=== PATIENT | male | born 1950 | race Caucasian/White ===

== ENCOUNTER 2017-01-28 08:33 | Inpatient (IN) | payer BC ==
[2017-01-21 10:15] LABS: BASOPHILS 0.2 %; BASOPHILS ABSOLUTE 0.02 10/3/uL (0.0-0.16); EOSINOPHILS 0.9 %; EOSINOPHILS ABSOLUTE 0.08 10/3/uL (0.0-0.53); HEMATOCRIT 42.8 % (40.0-51.0); HEMOGLOBIN 14.2 g/dL (13.6-17.8); IMMATURE GRANULOCYTES 0.8 %; IMMATURE GRANULOCYTES ABSOLUTE 0.07 10/3/uL (0.0-0.11); LYMPHOCYTES 31.9 %; LYMPHOCYTES ABSOLUTE 2.78 10/3/uL (0.67-4.30); MEAN CORPUS HGB CONC 33.2 g/dL (32.0-36.0); MEAN CORPUSCULAR HEMOGLOB 31.1 pg (26.0-34.0); MEAN CORPUSCULAR VOLUME 93.9 fL (80-100); MEAN PLATELET VOLUME 10.4 fL (9.2-13.0); MONOCYTES 7.9 %; MONOCYTES ABSOLUTE 0.69 10/3/uL (0.21-1.20); NEUTROPHILS 58.3 %; NEUTROPHILS ABSOLUTE 5.08 10/3/uL (2.02-8.40); PLATELET COUNT 277 10/3/uL (150-400); RBC DISTRIBUTION WIDTH 13.3 % (12.0-16.0); RED CELL COUNT 4.56 10/6/uL (4.7-6.1); WHITE BLOOD CELLS 8.7 10/3/uL (4.5-10.5)
[2017-01-21 10:17] LABS: MANUAL DIFF NO %
[2017-01-21 10:22] LABS: INTERNATIONAL NORMAL RATI 0.9 UNITS (-); PARTIAL THROMBO TIME 27.4 SEC (22.5-37.2); PROTIME (NOT ORD) 12.3 SEC (12.0-14.5)
[2017-01-21 10:28] LABS: CALCIUM, SERUM 9.2 MG/DL (8.5-10.4); CHLORIDE, SERUM 107 MMOL/L (96-112); CO2 (CARBON DIOXIDE) 27 MMOL/L (24-34); CREATININE 0.96 MG/DL (0.70-1.30); GFR AFRICAN AMERICAN 93 ML/MIN (>=60); GFR NON AFRICAN AMERICAN 80 ML/MIN (>=60); POTASSIUM, SERUM 4.7 MMOL/L (3.5-5.3); SODIUM, SERUM 142 MMOL/L (135-148)
[2017-01-21 10:30] LABS: BUN (BLOOD UREA NITROGEN) 15 MG/DL (6-23); GLUCOSE, SERUM 252 MG/DL (60-99)
[2017-01-21 11:48] LABS: ASCORBIC ACID (UR NOT ORDER) NEG (NEG); BILIRUBIN, URINE NEGATIVE (NEG); KETONE, URINE TRACE MG/DL (NEG); LEUKOCYTE ESTERASE(NOT OR NEG (NEG); WBC (NOT ORDERED) (RFLEX) 3 (0-5)
--- NOTE | ~2017-01-28 | DS ---
Discharge Summary [facility] [address] [place]. [address] NAME: MENDOZA LARSON : 46 STATUS : DIS IN PAT#: [id number] AGE: 67 ADM/REG DATE : 01/28/17 MR#: [id number] REPORT SERV DATE: 02/17/17 DICTATED BY: DILAN NOLASCO DATE: 02/17/17 REPORT STATUS : Draft TRANSCRIBED BY: MODDonal DATE: 02/17/17 Data Collection from hospitalization DISCHARGE DIAGNOSES: 1. 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 2. Diabetes mellitus. 3. Hypertension. 4. Neuropathy. 5. Obesity. 6. Glaucoma. CONSULTATIONS: Nilesh Boswell M.D. PROCEDURES: 1. Laparoscopic robotic-assisted right nephroureterectomy-converted, open, 01/28/2017. 2. CT scan of the abdomen and pelvis without contrast, 02/05/2017. 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 DISCHARGE MEDICATIONS: Vasotec 2.5 mg every morning, Xodol one tablet every four hours as needed, NovoLog FlexPen 9 units subcutaneously with meals, Levemir 50 units subcutaneously in a.m., Levemir 40 units subcutaneously at bedtime, Xalatan one drop at bedtime, Glucophage 850 mg twice a day, fish oil 1000 mg daily, Pravachol 40 mg at bedtime, Betimol 1 drop every morning. CONDITION ON DISCHARGE: Stable. DISPOSITION: The patient was discharged home on a regular diet with activities as instructed. He would follow up with me on Wednesday following discharge. He would follow up with Dr. Nilesh Boswell in two to three weeks following discharge. HOSPITAL COURSE: This is a 67-year-old man who was recently diagnosed with transitional cell carcinoma of the right renal pelvis. He had an episode of gross hematuria that led to imaging. Subsequent cystoscopy, retrograde pyelogram, ureteroscopy, and biopsy revealed a high-grade transitional cell carcinoma of the right ureter and renal pelvis. There were no signs of any metastatic disease. Different treatment options regarding management of this transitional cell carcinoma have been discussed with the patient. Treatment options were discussed and it was elected to proceed with surgical intervention. He was admitted to the hospital at this time for further evaluation and treatment. Upon admission, he was taken to the operating room where he underwent the above-mentioned procedure. He tolerated this well, and there were no complications. On postop day #1, his abdomen was soft and nontender. He had normal distal pulses. Nolasco catheter and DENISE drain were in place. We encouraged him to ambulate in the room. On 01/30, creatinine level was 1.72. His lungs were clear. He was passing flatus. He was seen by Dr. Nilesh Boswell regarding rise in serum creatinine, status post right nephrectomy for transitional renal cell carcinoma. His hemoglobin A1c by report is approximately 7.1-7.2. He had not Discharge Summary [address] [address] NAME: MENDOZA LARSON : 46 STATUS : DIS IN PAT#: [id number] AGE: 67 ADM/REG DATE : 01/28/17 MR#: [id number] REPORT SERV DATE: 02/17/17 DICTATED BY: DILAN NOLASCO DATE: 02/17/17 REPORT STATUS : Draft TRANSCRIBED BY: CYRIL DATE: 02/17/17 previously seen a nephrology provider. He is chronically maintained on JOHN inhibitor at home for his antihypertensive control but does not chronically use nonsteroidal medications. White blood cell count was 11.4. Creatinine level was 1.44. He remained currently on enalapril. He did have some low blood pressure during surgery as well as removal of his right kidney. It was felt that his creatinine had started to trend appropriately back toward its previous baseline. He was advised that going forward he would need to follow with a renal specialist. Urine studies were going to be checked as well as a repeat urinalysis. Enalapril was going to be stopped. He had been advised to avoid nonsteroidal medications for life, and he was also advised to avoid contrast medium if possible and weigh medical testing with risks versus rewards. On 01/31/2017, supportive care continued. Renal function had improved. He was felt to likely have ATN. JOHN inhibitor was on hold. Metformin was on hold. He was not passing flatus. Creatinine level was 1.25. The next day, he was afebrile. He did complain of belching. An NG tube was going to be placed. It was felt that he had a postop ileus. IV fluids were continued. On 02/02, he was alert and cooperative. He had no focal deficits. He had some slight abdominal distention. Proton-pump inhibitor was going to be added. He did have a small bowel movement. Postop ileus was felt to be improving. Discharge planning was performed. IV fluids were stopped. We were going to advance his diet. On 02/06/2017, he continued to pass flatus. His incisions were clean, dry, and intact. Discharge instructions were given. Due to his improved and stable condition, he was discharged home with the above-stated instructions. Information collected by: Skye Boo I submit the above information as my discharge summary. TG/MODDonal Dilan Nolasco M.D. / [id number] CC: Lucía Mcleod M.D. Nathan Chamberlain, M.D.
--- NOTE | ~2017-01-28 | PREOPHP ---
PreOp History and Physical [facility] [id number] [place]. [address] NAME: MENDOZA GILMORE : 46 STATUS : PRE [facility]#: [id number] AGE: 67 ADM/REG DATE : MR#: [id number] REPORT SERV DATE: 01/27/17 DICTATED BY: DILAN NOLASCO DATE: 01/27/17 REPORT STATUS : Draft TRANSCRIBED BY: MODL DATE: 01/27/17 CHIEF COMPLAINT: Transitional cell carcinoma, right renal pelvis. HISTORY OF PRESENT ILLNESS: Mr. Gilmore is a 67-year-old white male, recently diagnosed with transitional cell carcinoma of the right renal pelvis. He had an episode of gross hematuria that led to imaging. Subsequent cystoscopy, retrograde pyelogram, ureteroscopy, and biopsy revealed a high-grade transitional cell carcinoma of the right ureter and renal pelvis. There are no signs of any metastatic disease. Different treatment options regarding management of this transitional cell carcinoma have been discussed with the the patient. He has decided to proceed with laparoscopic robot-assisted right nephroureterectomy. PAST MEDICAL HISTORY: Diabetes mellitus. PAST SURGICAL HISTORY: Umbilical hernia repair. MEDICATIONS: Enalapril, fenfibronate, latanoprost ophthalmic, Levemir, metformin, pioglitazone, NovoLog, pravastatin, timolol. ALLERGIES: NONE. SOCIAL HISTORY: Never tobacco user. Denies alcohol abuse or drug use. FAMILY HISTORY: Negative for renal mass, renal cell carcinoma. REVIEW OF SYSTEMS: He wears glasses. Has diabetes and history of urolithiasis. PHYSICAL EXAMINATION: GENERAL/VITAL SIGNS: This is a well-developed, well-nourished white male with a BMI of 36. He is afebrile. Vital signs are stable. He is awake, alert, and oriented x3. HEENT: His cognitive function is fair. Sclerae anicteric. NECK: Supple. LUNGS: Clear. No enlarged cervical adenopathy. HEART: Regular rate and rhythm. ABDOMEN: Soft, nontender. No palpable abdominal masses. : Penis is normal. Testes are descended. Nontender. No testicular masses. LOWER EXTREMITIES: No deformities. IMPRESSION: High-grade transitional cell carcinoma lower pole of the right kidney. PLAN: Laparoscopic right nephroureterectomy. Potential complications of renal failure necessitating dialysis, bleeding, infection, and injury to adjacent structures such as liver, gallbladder, pleura, lung, diaphragm, blood vessel, nerves, colon, and intestine have all been explained to the patient. He consents to proceed. He will be admitted. PreOp History and Physical [address] [place] [address] NAME: MENDOZA GILMORE : 46 [place]US : [place] [facility] [place] [id number] AGE: 67 ADM/REG DATE : MR#: [id number] REPORT SERV DATE: 01/27/17 DICTATED BY: DILAN NOLASCO DATE: 01/27/17 REPORT STATUS : Draft TRANSCRIBED BY: MODL DATE: 01/27/17 PF/CYRIL Dilan Nolasco M.D. / [id number] CC: Lucía Mcleod M.D.
--- NOTE | ~2017-01-28 | OP ---
Record Of Operation [facility] [address] [place]. [address] NAME: MENDOZA LARSON : 46 STATUS : ADM IN PAT#: [id number] AGE: 67 ADM/REG DATE : 01/28/17 MR#: [id number] REPORT SERV DATE: 01/29/17 DICTATED BY: DILAN NOLASCO DATE: 01/28/17 REPORT STATUS : Draft TRANSCRIBED BY: MODL DATE: 01/28/17 DATE OF PROCEDURE: 01/28/2017 PREOPERATIVE DIAGNOSIS: Transitional cell carcinoma, right lower pole renal pelvis. POSTOPERATIVE DIAGNOSIS: Transitional cell carcinoma, right lower pole renal pelvis. PROCEDURE: Laparoscopic robot-assisted right nephroureterectomy, converted open. SURGEON: Dilan Nolasco M.D. SOLUTION ARCHITECT: Luis Felipe Siegel. ANESTHESIA: General. BLOOD LOSS: Estimated at 400 mL. FLUID REPLACEMENT: 3 L of crystalloid. DRAINS: A 15 mm Andry drain in the right renal fossa and a 16-Setswana Nolasco catheter per urethra. INDICATIONS: A 67-year-old male presented with hematuria and workup revealed him to have a transitional cell carcinoma of the lower pole calyx on the right side. TECHNIQUE: The patient was identified, brought to the operating room, and administered general anesthetic agent by the Anesthesia Service intubated. Positioned into the modified flank position with the torso, shoulders turned into the flank and the hips trying to remain flat. A 16-Setswana Nolasco catheter was passed in the bladder. The entire right flank and abdomen were prepped and draped with DuraPrep and draped in usual sterile fashion. A 3 cm skin incision plate placed adjacent to the umbilicus. Diego technique was used to gain access into the peritoneal cavity, and balloon trocar was placed in the peritoneal cavity. Pneumoperitoneum was created. The da Hua laparoscope was placed through the trocar. I then placed four da Hua trocars along the midclavicular line on the right side in a vertical fashion. I did much of the case laparoscopically. I mobilized the right colon and exposed the right ureter, right gonadal vessels, and after mobilizing the right colon and duodenum. The renal hilum was identified. The right renal artery was isolated. Two locking clips were placed on a proximally, one distally, and then it was divided between the last two clips. The right renal vein was secured with a laparoscopic TYLER stapler and then divided. At this point, I continued dissection mobilizing the upper pole of the kidney off the adrenal gland. The patient was very obese, so there was not much room to maneuver. After struggling for some time, I mobilized the ureter all the way down to the iliac vessels, decided to open. A right subcostal incision was made. I completed the upper pole mobilization off the adrenal gland and then mobilized the kidney laterally and inferiorly. Record Of Operation [facility] [address] [place]. [address] NAME: MENDOZA LARSON : 46 STATUS : ADM IN PAT#: [id number] AGE: 67 ADM/REG DATE : 01/28/17 MR#: [id number] REPORT SERV DATE: 01/29/17 DICTATED BY: DILAN NOLASCO DATE: 01/28/17 REPORT STATUS : Draft TRANSCRIBED BY: CYRIL DATE: 01/28/17 I made a Denis type incision in the right lower quadrant. I took the ureter down to the pelvis down to about the level of the vas deferens. It was clamped distally and then transected. Frozen section was taken from this area and it was negative. I oversewed it and I tied off the distal ureter with a 2-0 silk tie. The gonadal vessels were clipped and then divided. The specimen was removed from the field. I irrigated the wounds copiously. I inspected for hemostasis and fastidious hemostasis was achieved. A Andry drain was placed through one of the robot arm ports site and left in the right renal space. I repositioned the colon into its anatomic location. The lap and instrument count were correct. I closed the incisions with running 0 PDS in two layers and some interrupted 0 PDS [id number] sutures. The subcutaneous tissue of all ports was irrigated copiously. I closed the Diego port with [id number] 0 Vicryl sutures. Subcutaneous tissue was irrigated copiously and closed with 3-0 PDS. The skin of all ports and incisions were closed with nasima. Dressings were applied. The catheter was secured and the drain was sutured to the skin with 2-0 Prolene. Catheter was secured. The patient was awakened and taken to the recovery unit in stable and satisfactory condition. ABDIEL/MODL Dilan Nolasco M.D. / [id number] CC: Dilan Nolasco M.D.
--- NOTE | ~2017-01-28 | CN ---
Consultation Report [facility] [address] [place]. [address] NAME: MENDOZA LARSON : 46 STATUS : ADM IN PAT#: [id number] AGE: 67 ADM/REG DATE : 01/28/17 MR#: [id number] REPORT SERV DATE: 01/30/17 DICTATED BY: SHAYAN MENDEZ DATE: 01/30/17 REPORT STATUS : Draft TRANSCRIBED BY: MODL DATE: 01/30/17 DATE OF CONSULTATION: REASON FOR CONSULTATION: Rise in serum creatinine status post right nephrectomy for transitional renal cell carcinoma. HISTORY OF PRESENT ILLNESS: This is a very pleasant 67-year-old male patient, who is POD #2 status post right nephrectomy for transitional renal cell carcinoma. The patient reports that his initial workup was elicited after going home from an outing and experiencing painless hematuria. Baseline creatinine across 2014 appears to be 0.9 to 1.08; 2015, in March, he has a creatinine of 0.96; 01/21, preoperative workup shows a creatinine of 0.96; 01/29 at 1.72; 01/30 of 1.44. He does have a medical history, which includes hypertension and diabetes as well as some level of neuropathy, but no retinopathy. He also reports glaucoma. His A1c by report is at approximately 7.1 to 7.2, and he has not previously seen a Nephrology provider. He is also chronically maintained on JOHN inhibitor at home for his antihypertensive control, but does not chronically use nonsteroidal medications by review. The patient is lying, awake and alert this morning in bed and does not have complaints. He is in no acute distress. PAST MEDICAL HISTORY: Positive for recent findings of transitional renal cell carcinoma, status post nephrectomy, postop day two now. History is also positive for diabetes mellitus, hypertension, neuropathy without retinopathy, obesity, and glaucoma. REVIEW OF SYSTEMS: Completed, please see HPI for pertinent details. ALLERGIES: NO KNOWN ALLERGIES. ACTIVE CURRENT MEDICATIONS: Include the following: Enalapril 2.5 mg daily, NovoLog 9 units subcu a.c. via sliding scale, Xalatan one drop both eyes q.h.s., Promega one cap p.o. with meals, Pravachol 40 mg p.o. q.h.s., Timoptic one drop daily both eyes, Levemir 50 units subcu daily and h.s., as well as antinausea and antipain medications listed on his active MAR. PHYSICAL EXAMINATION: VITAL SIGNS: Blood pressure 135/77, temperature 98.7, respiratory rate is 16, heart rate 97 beats per minute and regular, he is 95% on room air. 3136 in and 2980 out with a net of positive 156. GENERAL: He is awake, alert and oriented, lying in bed during evaluation, in no acute distress. HEENT: He is normocephalic and atraumatic with normal ocular movements. No scleral icterus or conjunctival pallor is appreciated. NECK: Supple without thyromegaly. No JVD. No mass. CHEST: Shows positive S1 and S2. No rubs. No gallops. LUNGS: Diminished, but clear to auscultation throughout with normal expansion and effort Consultation Report [address] [place]. [address] NAME: MENDOZA LARSON : 46 STATUS : ADM IN PAT#: [id number] AGE: 67 ADM/REG DATE : 01/28/17 MR#: [id number] REPORT SERV DATE: 01/30/17 DICTATED BY: SHAYAN MENDEZ DATE: 01/30/17 REPORT STATUS : Draft TRANSCRIBED BY: CYRIL DATE: 01/30/17 bilaterally. GI: Shows an obese, rounded abdomen without firmness with positive bowel sounds in all four quadrants. : Deferred. However, he does have a Macias catheter to bedside drainage. SKIN: Warm, dry, and intact to visualized surfaces. No rash, lesions, or ecchymosis. NEUROLOGIC: He is grossly intact and is of appropriate mood and affect. LABORATORY DATA: Pertinent laboratories and imaging to this evaluation: Sodium 136, potassium 4.4, chloride 102, CO2 of 24, BUN 12, creatinine 1.44, reflected GFR at 49 mL/minute, glucose of 173, calcium 8.1, magnesium 2.1. White blood cell count 11.4, RBC 3.90, hemoglobin 12.4, hematocrit 36.6, platelets at 193. IMPRESSION AND PLAN: This is a very pleasant 67-year-old male patient, now postop day two, right transitional renal cell carcinoma, status post right nephrectomy with creatinines as listed above. The patient has historically had a sub-1 to 1.14 creatinine and trended up postoperatively from right nephrectomy. Likely, this is a result of some noted low blood pressures during surgery as well as the removal of his right kidney. He continues also currently on enalapril. The patient's creatinine has begun to trend appropriately back towards its previous baseline. The patient is advised going forward of need to follow with a renal specialist and advised of rudimentary plan of care at this point regarding monitoring his renal function and optimizing and maintaining said function. In evaluation today, we will check urine studies as well as repeat his UA as he does have some level of proteinuria with 30 mg/dL noted on his entry urinalysis and quantify that today. Also, remove his enalapril with unilateral kidney and elevation in creatinine. If blood pressure augmentation is required post removal of that medication, would opt for amlodipine or other medication that would not provide a possible impact to his renal capacity. The patient is advised to avoid nonsteroidal medications if it is possible going forward for life, and he is also advised to avoid contrast medium if possible and weigh medical testing with risks versus rewards scenarios. The patient will be followed for strict I's and Os, daily weights, hopeful of continuing recovery of his renal function, and he again will require followup with a renal specialist post this hospitalization. Further modification of treatment plan may be made based on the clinical presentation of the patient, laboratory results, and further consultation with renal attending. We appreciate consultation, we are glad to follow this patient with you. DICTATED BY: Randolph Del Castillo NP JR/CYRIL Shayan Mnedez M.D. / [id number] Consultation Report [address] [place]. [address] NAME: MENDOZA LARSON : 46 STATUS : ADM IN [facility]#: [id number] AGE: 67 ADM/REG DATE : 01/28/17 MR#: [id number] REPORT SERV DATE: 01/30/17 DICTATED BY: SHAYAN MENDEZ DATE: 01/30/17 REPORT STATUS : Draft TRANSCRIBED BY: CYRIL DATE: 01/30/17 CC: Lucía Mcleod M.D.
[~2017-01-28 08:33] MED LIST: ACTOPLUS M15 MG/850 PO; BETIMOL0.5 % OPH; DUREZOL0.05 % OP; FISH-EPA1000 MG PO; GLUCPH8 PO; ILEVRO1.7 ML OPH; LEVEMFLXPN SC; NOVOPEN SC; PRAVACHOL40 MG PO; TRICOR145 PO; VASOTEC2 PO; XALAT OPH; [UNRECOGNIZED DRUG - OTHER] OPH
[2017-01-29 07:29] LABS: HEMATOCRIT 41.8 % (40.0-51.0); HEMOGLOBIN 13.9 g/dL (13.6-17.8)
[2017-01-29 07:41] LABS: BUN (BLOOD UREA NITROGEN) 16 MG/DL (6-23); CHLORIDE, SERUM 104 MMOL/L (96-112); CO2 (CARBON DIOXIDE) 23 MMOL/L (24-34); GLUCOSE, SERUM 211 MG/DL (60-99); SODIUM, SERUM 137 MMOL/L (135-148)
[2017-01-29 07:42] LABS: CALCIUM, SERUM 7.8 MG/DL (8.5-10.4); CREATININE 1.72 MG/DL (0.70-1.30); GFR AFRICAN AMERICAN 46 ML/MIN (>=60); GFR NON AFRICAN AMERICAN 40 ML/MIN (>=60)
[2017-01-30 08:18] LABS: BASOPHILS 0.2 %; BASOPHILS ABSOLUTE 0.02 10/3/uL (0.0-0.16); EOSINOPHILS 0.1 %; EOSINOPHILS ABSOLUTE 0.01 10/3/uL (0.0-0.53); HEMOGLOBIN 12.4 g/dL (13.6-17.8); IMMATURE GRANULOCYTES 0.7 %; IMMATURE GRANULOCYTES ABSOLUTE 0.08 10/3/uL (0.0-0.11); LYMPHOCYTES ABSOLUTE 1.48 10/3/uL (0.67-4.30); MEAN CORPUS HGB CONC 33.9 g/dL (32.0-36.0); MEAN CORPUSCULAR HEMOGLOB 31.8 pg (26.0-34.0); MEAN CORPUSCULAR VOLUME 93.8 fL (80-100); MEAN PLATELET VOLUME 10.1 fL (9.2-13.0); MONOCYTES 15.2 %; MONOCYTES ABSOLUTE 1.73 10/3/uL (0.21-1.20); NEUTROPHILS 70.8 %; NEUTROPHILS ABSOLUTE 8.08 10/3/uL (2.02-8.40); RBC DISTRIBUTION WIDTH 13.7 % (12.0-16.0); WHITE BLOOD CELLS 11.4 10/3/uL (4.5-10.5)
[2017-01-30 08:29] LABS: BUN (BLOOD UREA NITROGEN) 12 MG/DL (6-23); CALCIUM, SERUM 8.1 MG/DL (8.5-10.4); CHLORIDE, SERUM 102 MMOL/L (96-112); CO2 (CARBON DIOXIDE) 24 MMOL/L (24-34); CREATININE 1.44 MG/DL (0.70-1.30); GFR AFRICAN AMERICAN 57 ML/MIN (>=60); GFR NON AFRICAN AMERICAN 49 ML/MIN (>=60); GLUCOSE, SERUM 173 MG/DL (60-99); HEMATOCRIT 36.6 % (40.0-51.0); MANUAL DIFF NO %; PLATELET COUNT 193 10/3/uL (150-400); POTASSIUM, SERUM 4.4 MMOL/L (3.5-5.3); SODIUM, SERUM 136 MMOL/L (135-148)
[2017-01-31 06:40] LABS: MEAN CORPUS HGB CONC 33.4 g/dL (32.0-36.0); MEAN CORPUSCULAR HEMOGLOB 31.5 pg (26.0-34.0); MEAN CORPUSCULAR VOLUME 94.4 fL (80-100); MEAN PLATELET VOLUME 10.3 fL (9.2-13.0); PLATELET COUNT 201 10/3/uL (150-400); RBC DISTRIBUTION WIDTH 13.5 % (12.0-16.0); RED CELL COUNT 4.44 10/6/uL (4.7-6.1); WHITE BLOOD CELLS 13.3 10/3/uL (4.5-10.5)
[2017-01-31 06:45] LABS: HEMATOCRIT 41.9 % (40.0-51.0); MANUAL DIFF YES %
[2017-01-31 07:02] LABS: BUN (BLOOD UREA NITROGEN) 15 MG/DL (6-23); CALCIUM, SERUM 7.4 MG/DL (8.5-10.4); CHLORIDE, SERUM 101 MMOL/L (96-112); CO2 (CARBON DIOXIDE) 27 MMOL/L (24-34); CREATININE 1.25 MG/DL (0.70-1.30); GFR AFRICAN AMERICAN 68 ML/MIN (>=60); GFR NON AFRICAN AMERICAN 58 ML/MIN (>=60); PHOSPHORUS, SERUM 1.6 MG/DL (2.5-4.5); POTASSIUM, SERUM 4.2 MMOL/L (3.5-5.3); SODIUM, SERUM 137 MMOL/L (135-148)
[2017-01-31 07:03] LABS: ALBUMIN 2.3 G/DL (3.5-5.0); GLUCOSE, SERUM 133 MG/DL (60-99)
[2017-01-31 07:56] LABS: BAND NEUTROPHILS 11 %; LYMPHOCYTES 6 %; MONOCYTES 12 %; NEUTROPHILS ABSOLUTE (CALC) 10.91 10/3/uL (2.02-8.40); PLATELET ESTIMATE ADQ (ADEQUATE); RBC MORPHOLOGY NORM (NORMAL); SEGMENTED NEUTROPHIL (0) 71 %; TOTAL NUCLEATED CELLS 100
[2017-01-31 10:29] LABS: BUN (BLOOD UREA NITROGEN) 15 MG/DL (6-23); CHLORIDE, SERUM 101 MMOL/L (96-112); CO2 (CARBON DIOXIDE) 27 MMOL/L (24-34); CREATININE 1.27 MG/DL (0.70-1.30); GFR AFRICAN AMERICAN 66 ML/MIN (>=60); GFR NON AFRICAN AMERICAN 57 ML/MIN (>=60); GLUCOSE, SERUM 138 MG/DL (60-99); POTASSIUM, SERUM 4.5 MMOL/L (3.5-5.3); SODIUM, SERUM 138 MMOL/L (135-148)
[2017-01-31 10:32] LABS: CALCIUM, SERUM 8.5 MG/DL (8.5-10.4)
[2017-02-01 05:37] LABS: HEMOGLOBIN 13.4 g/dL (13.6-17.8); MEAN CORPUS HGB CONC 33.5 g/dL (32.0-36.0); MEAN CORPUSCULAR HEMOGLOB 31.7 pg (26.0-34.0); MEAN CORPUSCULAR VOLUME 94.6 fL (80-100); MEAN PLATELET VOLUME 10.5 fL (9.2-13.0); PLATELET COUNT 224 10/3/uL (150-400); RBC DISTRIBUTION WIDTH 13.6 % (12.0-16.0); RED CELL COUNT 4.23 10/6/uL (4.7-6.1); WHITE BLOOD CELLS 15.8 10/3/uL (4.5-10.5)
[2017-02-01 05:39] LABS: MANUAL DIFF YES %
[2017-02-01 05:59] LABS: ALBUMIN 2.1 G/DL (3.5-5.0); BUN (BLOOD UREA NITROGEN) 14 MG/DL (6-23); CALCIUM, SERUM 8.2 MG/DL (8.5-10.4); CHLORIDE, SERUM 105 MMOL/L (96-112); CREATININE 1.05 MG/DL (0.70-1.30); GFR AFRICAN AMERICAN 84 ML/MIN (>=60); GFR NON AFRICAN AMERICAN 72 ML/MIN (>=60); GLUCOSE, SERUM 120 MG/DL (60-99); PHOSPHORUS, SERUM 1.7 MG/DL (2.5-4.5); POTASSIUM, SERUM 4.6 MMOL/L (3.5-5.3); SODIUM, SERUM 134 MMOL/L (135-148)
[2017-02-01 06:01] LABS: CO2 (CARBON DIOXIDE) 19 MMOL/L (24-34)
[2017-02-01 06:13] LABS: BAND NEUTROPHILS 1 %; BASOPHILS 1 %; BASOPHILS ABSOLUTE (CALC) 0.16 10/3/uL (0.0-0.16); EOSINOPHILS 1 %; EOSINOPHILS ABSOLUTE (CALC) 0.16 10/3/uL (0.0-0.53); LYMPHOCYTES 10 %; LYMPHOCYTES ABSOLUTE (CALC) 1.58 10/3/uL (0.67-4.30); MONOCYTES 4 %; MONOCYTES ABSOLUTE (CALC) 0.63 10/3/uL (0.21-1.20); NEUTROPHILS ABSOLUTE (CALC) 13.27 10/3/uL (2.02-8.40); PLATELET ESTIMATE ADQ (ADEQUATE); RBC MORPHOLOGY NORM (NORMAL); SEGMENTED NEUTROPHIL (0) 83 %; TOTAL NUCLEATED CELLS 100
[2017-02-02 05:12] LABS: BASOPHILS 0.2 %; BASOPHILS ABSOLUTE 0.03 10/3/uL (0.0-0.16); EOSINOPHILS 0.8 %; EOSINOPHILS ABSOLUTE 0.11 10/3/uL (0.0-0.53); HEMATOCRIT 38.3 % (40.0-51.0); IMMATURE GRANULOCYTES 0.9 %; IMMATURE GRANULOCYTES ABSOLUTE 0.13 10/3/uL (0.0-0.11); LYMPHOCYTES 10.3 %; LYMPHOCYTES ABSOLUTE 1.49 10/3/uL (0.67-4.30); MEAN CORPUS HGB CONC 33.9 g/dL (32.0-36.0); MEAN CORPUSCULAR HEMOGLOB 31.3 pg (26.0-34.0); MEAN CORPUSCULAR VOLUME 92.1 fL (80-100); MEAN PLATELET VOLUME 10.1 fL (9.2-13.0); MONOCYTES 10.5 %; MONOCYTES ABSOLUTE 1.51 10/3/uL (0.21-1.20); NEUTROPHILS 77.3 %; NEUTROPHILS ABSOLUTE 11.16 10/3/uL (2.02-8.40); PLATELET COUNT 273 10/3/uL (150-400); RBC DISTRIBUTION WIDTH 13.2 % (12.0-16.0); RED CELL COUNT 4.16 10/6/uL (4.7-6.1); WHITE BLOOD CELLS 14.4 10/3/uL (4.5-10.5)
[2017-02-02 05:13] LABS: MANUAL DIFF NO %
[2017-02-02 05:30] LABS: BUN (BLOOD UREA NITROGEN) 16 MG/DL (6-23); CHLORIDE, SERUM 100 MMOL/L (96-112); CREATININE 1.11 MG/DL (0.70-1.30); GFR AFRICAN AMERICAN 78 ML/MIN (>=60); GFR NON AFRICAN AMERICAN 67 ML/MIN (>=60); PHOSPHORUS, SERUM 2.1 MG/DL (2.5-4.5); POTASSIUM, SERUM 4.2 MMOL/L (3.5-5.3); SODIUM, SERUM 135 MMOL/L (135-148)
[2017-02-02 05:35] LABS: CO2 (CARBON DIOXIDE) 24 MMOL/L (24-34); GLUCOSE, SERUM 150 MG/DL (60-99)
[2017-02-06] MEDS ORDERED: XODOL 7.5-3001 EACH PO (13:46)
== END 2017-02-06 14:54 | disposition home or self-care (01) | DRG 656 ==
LOC: SDC 08:33 → SDC/OF 16:51 → 4SO 18:27
PROVIDERS: Internal Medicine; Internal Medicine Nephrology; Registered Nurse; Urology
PROC: 8E0W4CZ Robotic Assisted Procedure of Trunk Region, Percutaneous Endoscopic Approach (ICD-10-PCS; principal; 2017-01-28 12:00)
PROC: 0TT00ZZ Resection of Right Kidney, Open Approach (ICD-10-PCS; principal; 2017-01-28 12:00)
PROC: 0WJH4ZZ Inspection of Retroperitoneum, Percutaneous Endoscopic Approach (ICD-10-PCS; principal; 2017-01-28 12:00)
PROC: 0TT60ZZ Resection of Right Ureter, Open Approach (ICD-10-PCS; principal; 2017-01-28 12:00)
DX: C65.1 Malignant neoplasm of right renal pelvis (principal); N17.0 Acute kidney failure with tubular necrosis; K91.89 Other postprocedural complications and disorders of digestive system; K56.7 Ileus, unspecified; E11.40 Type 2 diabetes mellitus with diabetic neuropathy, unspecified; Z79.84 Long term (current) use of oral hypoglycemic drugs; Z79.4 Long term (current) use of insulin; H40.9 Unspecified glaucoma; Z53.31 Laparoscopic surgical procedure converted to open procedure; E66.9 Obesity, unspecified; Z68.35 Body mass index [BMI] 35.0-35.9, adult; E11.22 Type 2 diabetes mellitus with diabetic chronic kidney disease; I12.9 Hypertensive chronic kidney disease with stage 1 through stage 4 chronic kidney disease, or unspecified chronic kidney disease; N18.9 Chronic kidney disease, unspecified
CPT/HCPCS: 74000; 74020; 74176; 80048; 80069; 81001; 82570; 82962; 83735; 84100; 84156; 84300; 85014; 85018; 85025; 85610; 85730; 88307; 88331; 93005; A9270-GY; C9113; J0690; J2250; J2270; J2405; J2550; J2710; J2795; J3010